=== PATIENT | male | born 1960 | race Caucasian/White ===

== ENCOUNTER 2020-08-23 07:38 | Emergency (ER) | payer BC ==
[~2020-08-23] VITALS: Ht 182.9 cm; Wt 100.5 kg
[~2020-08-23 07:38] MED LIST: AMARYL 2MG T2 MG/TAB PO; BACTRIM DS 8001 TAB PO; CEPHALEXIN500 M1 PO; DUO-KAPS1 CAP PO; EPA/GLA1 SGL PO; GLUCOPHAGE1000 MG PO; NORCO 325 MG-51 TAB PO; PREDNISONE20 MG PO; ZESTRIL 10MG10 MG PO
[2020-08-23 07:42] VITALS: TEMP 97.8
[2020-08-23 08:12] LABS: BASO % 0.6 % (0.0-2.0); EOS # 0.2 (0.0-0.7); EOS % 3.5 % (0-4.0); GRAN # 3.6 (1.4-6.5); GRAN % 53.7 % (42.2-75.2); HEMATOCRIT 45.9 % (42.0-52.0); HEMOGLOBIN 15.6 g/dl (13.5-18.0); LYMPH % 30.5 % (20.0-51.0); MEAN CELL VOLUME 87 fl (80.0-100.0); MEAN CORPUSCULAR HEMOGLOBIN 30 pg (27.0-31.0); MEAN CORPUSCULAR HGB CONC 34 g/dl (33.0-37.0); MEAN PLATELET VOLUME 10.5 fl (7.4-10.4); MONO # 0.7 (0.1-0.6); MONO % 11.2 % (1.7-9.3); PLATELET COUNT 226 K/mm3 (130-400); RED BLOOD COUNT 5.28 M/mm3 (4.20-5.60); REDCELL DISTRIBUTION WIDTH-CV 13.1 % (11.5-14.5)
[2020-08-23 08:21] LABS: ALANINE AMINOTRANSFERASE 59 U/L (4-49); ALKALINE PHOSPHATASE 52 U/L (50-136); ANION GAP 7 mmol/L (7-16); AST,SGOT 40 U/L (15-37); BILIRUBIN,TOTAL 0.6 mg/dL (0.0-1.0); BLOOD UREA NITROGEN 21 mg/dL (9-20); CALCIUM 8.6 mg/dL (8.4-10.2); CARBON DIOXIDE 24 mmol/L (22-30); CHLORIDE 106 mmol/L (98-107); GLUCOSE 178 mg/dL (74-106); POTASSIUM 4.2 mmol/L (3.4-5.0); SODIUM 138 mmol/L (137-145); TOTAL PROTEIN 6.8 gm/dL (6.4-8.2)
[2020-08-23 08:23] LABS: C-REACTIVE PROTEIN < 0.5 mg/dL (0.0-0.9)
[2020-08-23 09:56] LABS: PH 6 (5-8); SQUAMOUS EPITHELIAL None Seen /hpf; URINE APPEARANCE Clear; URINE BACTERIA None Seen /hpf; URINE BILIRUBIN Negative (NEGATIVE); URINE BLOOD Negative (NEGATIVE); URINE COLOR Yellow; URINE GLUCOSE 3+ (NEGATIVE); URINE KETONE Negative (NEGATIVE); URINE LEUKOCYTE ESTERASE Negative (NEGATIVE); URINE NITRATE Negative (NEGATIVE); URINE PROTEIN(semi-quant) Negative (NEGATIVE); URINE RBC None Seen /hpf; URINE UROBILINOGEN Negative (NEGATIVE); URINE WBC 0-2 /hpf
[2020-08-23 10:46] LABS: COLLECTION METHOD CLEAN CATCH
[2020-08-23 12:23] VITALS: BP 140/90; PULSE 65
== END 2020-08-23 12:23 | disposition home or self-care (01) ==
LOC: COL.ER 07:38
PROVIDERS: Family Medicine
DX: G45.9 Transient cerebral ischemic attack, unspecified (principal); E11.9 Type 2 diabetes mellitus without complications; I10 Essential (primary) hypertension; Z88.0 Allergy status to penicillin; Z79.899 Other long term (current) drug therapy; Z79.84 Long term (current) use of oral hypoglycemic drugs
CPT/HCPCS: Q9967

== ENCOUNTER 2023-05-01 22:04 | Emergency (ER) | payer BC ==
[~2023-05-01] VITALS: Ht 182.9 cm; Wt 81.8 kg
[2023-05-01 22:09] VITALS: TEMP 96.8
[2023-05-01] MEDS ORDERED: NS 1,000 ML IV ONE (22:15)
[2023-05-01 22:25] LABS: BASO % 0.4 % (0.0-2.0); EOS # 0.2 K/mm3 (0.0-0.7); EOS % 2.1 % (0.0-4.0); GRAN # 4.2 K/mm3 (1.4-6.5); HEMATOCRIT 47.5 % (42.0-52.0); HEMOGLOBIN 16.2 g/dl (13.5-18.0); LYMPH # 1.9 K/mm3 (1.2-3.4); MEAN CELL VOLUME 89 fl (80.0-100.0); MEAN CORPUSCULAR HEMOGLOBIN 30 pg (27-31); MEAN CORPUSCULAR HGB CONC 34 g/dl (33.0-37.0); MEAN PLATELET VOLUME 9.8 fl (7.4-10.4); MONO # 0.7 K/mm3 (0.1-0.6); MONO % 10.2 % (1.7-9.3); PLATELET COUNT 236 K/mm3 (130-400); RED BLOOD COUNT 5.33 M/mm3 (4.20-5.60); REDCELL DISTRIBUTION WIDTH-CV 12.1 % (11.5-14.5)
[2023-05-01 22:36] LABS: PROTHROMBIN TIME 10.7 SECONDS (9.7-12.8)
[2023-05-01 22:42] LABS: ALANINE AMINOTRANSFERASE 32 U/L (0-55); ALKALINE PHOSPHATASE 84 U/L (40-150); ANION GAP 10 mmol/L (7-16); AST,SGOT 20 U/L (5-34); BILIRUBIN,TOTAL 0.6 mg/dL (0.2-1.2); BLOOD UREA NITROGEN 13 mg/dL (8-26); CALCIUM 9.4 mg/dL (8.4-10.2); CARBON DIOXIDE 26 mmol/L (23-31); CHLORIDE 107 mmol/L (98-107); CREATININE, serum 0.87 mg/dL (0.72-1.25); GLUCOSE 103 mg/dL (70-99); POTASSIUM 3.7 mmol/L (3.5-4.5); SODIUM 143 mmol/L (136-145); TOTAL PROTEIN 6.4 gm/dL (6.2-8.1)
[2023-05-01 22:57] LABS: TROPONIN-I < 0.010 ng/mL (0.00-0.033)
[2023-05-01 23:34] LABS: ALCOHOL(ethanol),MEDICAL < 10 mg/dL (0-10)
[2023-05-02 00:19] VITALS: BP 127/81; PULSE 81
== END 2023-05-02 00:19 | disposition home or self-care (01) ==
LOC: COL.ER 22:04
PROVIDERS: Emergency Medicine
DX: R41.0 Disorientation, unspecified (principal); R45.1 Restlessness and agitation; Z91.040 Latex allergy status
CPT/HCPCS: J7030

== ENCOUNTER 2023-09-20 12:09 | Emergency (ER) | payer BC ==
[~2023-09-20] VITALS: Ht 182.9 cm; Wt 91.4 kg
[2023-09-20 12:55] LABS: COLLECTION METHOD CLEAN CATCH
[2023-09-20 12:59] LABS: BASO % 0.4 % (0.0-2.0); EOS # 0.1 K/mm3 (0.0-0.7); EOS % 0.6 % (0.0-4.0); GRAN # 6.5 K/mm3 (1.4-6.5); GRAN % 79.7 % (42.2-75.2); HEMATOCRIT 47.5 % (42.0-52.0); HEMOGLOBIN 16.5 g/dl (13.5-18.0); LYMPH # 0.9 K/mm3 (1.2-3.4); MEAN CELL VOLUME 85 fl (80.0-100.0); MEAN CORPUSCULAR HEMOGLOBIN 30 pg (27-31); MEAN CORPUSCULAR HGB CONC 35 g/dl (33.0-37.0); MEAN PLATELET VOLUME 9.7 fl (7.4-10.4); MONO # 0.6 K/mm3 (0.1-0.6); MONO % 7.8 % (1.7-9.3); PLATELET COUNT 244 K/mm3 (130-400); REDCELL DISTRIBUTION WIDTH-CV 12.3 % (11.5-14.5)
[2023-09-20 12:59] LABS: URINE APPEARANCE CLEAR (CLEAR/HAZY); URINE BLOOD NEGATIVE (NEGATIVE); URINE COLOR Dark Yellow (YELLOW); URINE GLUCOSE 2+ (NEGATIVE); URINE KETONE TRACE (NEGATIVE); URINE NITRATE NEGATIVE (NEGATIVE); URINE PROTEIN(semi-quant) NEGATIVE (NEGATIVE); URINE UROBILINOGEN 0.2 E.U/dL (0.2-1.0)
[2023-09-20 13:14] LABS: TRICYCLIC ANTIDEPRESS URINE NEGATIVE (NEGATIVE)
[2023-09-20 13:20] LABS: ALANINE AMINOTRANSFERASE 39 U/L (0-55); ALBUMIN 4.2 g/dL (3.4-4.8); ALKALINE PHOSPHATASE 72 U/L (40-150); ANION GAP 12 mmol/L (7-16); AST,SGOT 22 U/L (5-34); BILIRUBIN,TOTAL 0.7 mg/dL (0.2-1.2); BLOOD UREA NITROGEN 21 mg/dL (8-26); CALCIUM 10.6 mg/dL (8.4-10.2); CHLORIDE 106 mEq/L (98-107); CREATININE, serum 1.06 mg/dL (0.72-1.25); GLUCOSE 219 mg/dL (70-99); SODIUM 139 mEq/L (136-145); TOTAL PROTEIN 6.8 g/dl (6.2-8.1)
[2023-09-20 13:26] LABS: ALCOHOL(ethanol),MEDICAL < 10 mg/dL (0-10); SALICYLATE < 5.0 mg/dL (15.0-30.0)
[2023-09-20] MEDS ORDERED: LORazepam 2 MG/ML 1 ML VIAL IM ONE (16:00)
--- NOTE | 2023-09-20 16:06 | NUR ---
end worker receieved a consult for pt to find placement and being unable to manage him at home due to behaviors. ERIKA spoke with SHRUTI Ramirez who informed SW he has frontal lobe dementia and is exhibting behaviors toward his and in the home. She reports pt is being loud and anxious waiting in the ER. RN states they will have [facility] screen with hopes of [facility] placement. RN states pt is agreeable to LTC and wants placement. RN advised has toured or spoke with [facility]. SW spoke with Lina Martinez who reports pt is on the list for their special care unit, so they are full at this time. She states pt would still have to be screened as well for them to consider in the future. ERIKA spoke with Kamala White who reports they would not be able to look into pt and screen him until early next week due to going into the weekend. She states they would not count him out, they would just need to screen and visit with pt and . ERIKA emailed pt's clinical's to Carlos at [facility] to review. He reports that due to pt's behaviors and mental health concerns, they could not manage him. He reports that this dementia is deteriorating and often gets worse; so most shelter cannot manage these cases during an episode. SW spoke with RN and AMARIS Melton regarding pt. was speaking with Aurelio Haley on the phone. All in agreement that pt cannot be managed in a shelter setting due to high behaviors and needing to stablize. AMARIS Melton and this SW spoke with Therapist Sudha to state that he cannot go to a shelter and cannot safely take him home. Sudha reports she can attemp [facility] placement, but questions this due to him not having suicidal or homicidal tendencies. AMARIS states pt needs medication management to be managed in a shelter in the future and would not be admitted at current. Sudha states this can take some time and he has had reactions to medications. ERIKA later spoke with Sudha again who is going to send to [facility], and she will obtain DPOA. ERIKA later called , Lori to clarify. She had no questions and is agreeable to [facility] to manage pt currently. She reports he is anxious waiting. SW advised she will send to a few more places to help expediate the process. states she would consider LTC or taking pt home after [facility] stay. SW provided she could further speak to [facility] in the future to screen. ERIKA faxed referral to: [facility], [facility], [facility], [facility], and [facility].
[2023-09-20] MEDS ORDERED: DEPAKOTE 125MG125 MG PO (16:34)
[2023-09-20] MEDS ORDERED: PRINIVIL10 MG PO (16:35)
[2023-09-20] MEDS ORDERED: GLUCOPHAGE500 MG/TAB PO (16:35)
[2023-09-20] MEDS ORDERED: LIPITOR 40MG TA40 MG PO (16:38)
[2023-09-20] MEDS ORDERED: ASPIRIN 81M81 MG/TA2 PO (16:39)
[2023-09-20] MEDS ORDERED: NAMENDA5 MG PO (16:41)
[2023-09-20] MEDS ORDERED: Memantine 5 MG TAB PO ONE (19:00)
[2023-09-20] MEDS ORDERED: metFORMIN 500 MG TAB PO ONE (19:00)
[2023-09-20] MEDS ORDERED: Melatonin 3 MG TAB PO ONE (20:45)
[2023-09-21] MEDS ORDERED: Lisinopril 10 MG TAB PO ONE (04:00)
[2023-09-21] MEDS ORDERED: LORazepam 0.5 MG TAB PO PRN (06:45)
[2023-09-21] MEDS ORDERED: metFORMIN 500 MG TAB PO SCH (08:00)
[2023-09-21] MEDS ORDERED: Lisinopril 10 MG TAB PO SCH (09:00)
[2023-09-21] MEDS ORDERED: Memantine 5 MG TAB PO SCH (09:00)
--- NOTE | 2023-09-21 09:42 | NUR ---
healthcare social worker Simon heard from [facility] whom was interested in reviewing patient for [facility] but needed DPOA-HC, [facility] note and updated nursing notes. ERIKA spoke with patient's nurse whom reported Aurelio called her early this morning and explained they had two facilities that were reviewing. ERIKA contacted Sudha at [facility] whom explained she had [facility] and [facility] reviewing and reports these two facilities would be the best to handle patient's care. ERIKA explained yesterday Social work had also sent to [facility] whom is requesting DPOA and [facility] note. Sudha stated that the hospital is welcome to send to other facilities but they do not have all of the information. Sudha stated she would send the requested information to [facility] but that facility can be "picky" on whom they accept. Sudha explained she faxed the requested information. Sudha explained [facility] and [facility] both sounded interested in this patient but they were reviewing for bed availability. Sudha explained [facility] would not have a bed until after 7 pm today but if he is accepted there they could complete required intake information before then. Sudha explained she would keep social worker masters/nurse updated and requested the SW/nurse call her if they hear from the facilities before she does. ERIKA updated patient's nurse. ERIKA attempted to contact patient's , Lori, no answer. ERIKA left detailed voicemail that A[facility]lio is still working on placement and left her number to call back with any questions or concerns.
--- NOTE | 2023-09-21 13:19 | NUR ---
generator worker was notified [facility] is unable to accept due to patient's acute medical needs. SW was contacted by patient's whom asked if she would have a choice in the facility he would go to. ERIKA explained once they have an accepting facility that would be where the patient would need to go as it can be difficult to get into [facility] facilities. ERIKA explained A[facility] is working on the referrals and would keep the hospital updated. Lori explained patient was not sleeping well because he is right outside the nursing station and wanted to know how long he will be in this hospital. ERIKA explained she would not be able to provide a timeline as they unfortunately have to wait for placement and it varies how long that will take. ERIKA reviewed RN note expressing patient was declined at [facility] and [facility]. Aurelio is working on contacting the other facilities.
[2023-09-21] MEDS ORDERED: metFORMIN 500 MG TAB PO ONE (20:30)
[2023-09-22] MEDS ORDERED: LORazepam 2 MG/ML 1 ML VIAL IM ONE (04:15)
[2023-09-22 07:07] VITALS: BP 128/87; PULSE 81; TEMP 97.9
[2023-09-22] MEDS ORDERED: Atorvastatin 40 MG TAB PO SCH (09:00)
[2023-09-22] MEDS ORDERED: ATIVAN 0.50.5 MG/TAB PO (15:05)
== END 2023-09-22 15:40 | disposition home or self-care (01) ==
LOC: COL.ER 12:09
PROVIDERS: Nurse Practitioner Primary Care
DX: F03.911 Unspecified dementia, unspecified severity, with agitation (principal); Z91.040 Latex allergy status
CPT/HCPCS: J2060

== ENCOUNTER 2023-09-25 11:00 | Emergency (ER) | payer BC ==
[~2023-09-25] VITALS: Ht 182.9 cm; Wt 91.4 kg
[~2023-09-25 11:00] MED LIST changes: +ASPIRIN 81M81 MG/TA2 PO; +ATIVAN 0.50.5 MG/TAB PO; +DEPAKOTE 125MG125 MG PO; +GLUCOPHAGE500 MG/TAB PO; +LIPITOR 40MG TA40 MG PO; +NAMENDA5 MG PO; +PRINIVIL10 MG PO
[2023-09-25 11:22] VITALS: TEMP 97.8
[2023-09-25] MEDS ORDERED: NS 1,000 ML IV ONE (12:00)
[2023-09-25 12:24] LABS: BASO % 0.1 % (0.0-2.0); EOS # 0.1 K/mm3 (0.0-0.7); EOS % 1.2 % (0.0-4.0); GRAN # 7.3 K/mm3 (1.4-6.5); GRAN % 78.8 % (42.2-75.2); HEMOGLOBIN 15.7 g/dl (13.5-18.0); LYMPH # 1.1 K/mm3 (1.2-3.4); LYMPH % 11.9 % (20.0-51.0); MEAN CELL VOLUME 87 fl (80.0-100.0); MEAN CORPUSCULAR HEMOGLOBIN 30 pg (27-31); MEAN CORPUSCULAR HGB CONC 34 g/dl (33.0-37.0); MEAN PLATELET VOLUME 10.1 fl (7.4-10.4); MONO # 0.7 K/mm3 (0.1-0.6); MONO % 7.7 % (1.7-9.3); PLATELET COUNT 233 K/mm3 (130-400); REDCELL DISTRIBUTION WIDTH-CV 12.5 % (11.5-14.5)
[2023-09-25 12:40] LABS: ALANINE AMINOTRANSFERASE 33 U/L (0-55); ALBUMIN 3.7 g/dL (3.4-4.8); ALKALINE PHOSPHATASE 75 U/L (40-150); ANION GAP 8 mmol/L (7-16); BILIRUBIN,TOTAL 0.6 mg/dL (0.2-1.2); BLOOD UREA NITROGEN 16 mg/dL (8-26); CHLORIDE 105 mEq/L (98-107); CREATININE, serum 0.84 mg/dL (0.72-1.25); GLUCOSE 182 mg/dL (70-99); POTASSIUM 4.2 mEq/L (3.5-4.5); SODIUM 136 mEq/L (136-145); TOTAL PROTEIN 6.2 g/dl (6.2-8.1)
[2023-09-25 12:53] LABS: TROPONIN-I < 0.010 ng/mL (0.00-0.033)
[2023-09-25 13:14] LABS: AST,SGOT < 3 U/L (5-34)
[2023-09-25] MEDS ORDERED: NS 100 ML IV SCH (13:23)
[2023-09-25] MEDS ORDERED: Iohexol 300 - 100 ML VIAL IV ONE (13:24)
[2023-09-25 14:50] VITALS: BP 134/95; PULSE 78
== END 2023-09-25 14:50 | disposition home or self-care (01) ==
LOC: COL.ER 11:00
PROVIDERS: Personal Emergency Response Attendant
DX: R07.89 Other chest pain (principal); Z85.831 Personal history of malignant neoplasm of soft tissue; Z91.040 Latex allergy status
CPT/HCPCS: J7030; Q9967